=== PATIENT | female | born 1960 | race Caucasian/White ===

== ENCOUNTER 2021-03-23 11:50 | Emergency (ER) | payer OTHER, SELFPAY ==
--- NOTE | ~2021-03-23 | XR_ITS ---
EXAMINATION: XR shoulder LT min 2V DATE: 03/23/2021 12:55 INDICATION: Left shoulder injury and pain. TECHNIQUE: 4 views of left shoulder were obtained. COMPARISON: None. FINDINGS: There is a comminuted fracture of proximal left humerus involving the greater tuberosity an d surgical neck. The main distal fracture fragment demonstrates impaction and 17 degrees lateral angu lation. There is mild osteoarthritis of glenohumeral joint and moderate osteoarthritis of the acromio clavicular joint. IMPRESSION: 1. Comminuted fracture of proximal left humerus. 2. Polyarticular osteoarthritis. Reviewed, dictated and finalized at location A. SDET
[2021-03-23 11:56] VITALS: BP 165/95; PULSE 75; RESP 16; TEMP 36.2; O2SAT 100
--- NOTE | 2021-03-23 11:57 | PC.NURSE ---
2 silver rings removed from 4th finger left hand utilizing soap. rings given to daughter.
--- NOTE | 2021-03-23 12:56 | ED.UPPEXIN ---
HPI - Extremity Injury (Upper) General Chief Complaint: Extremity Injury, Upper Stated Complaint: fall, left arm pain Time Seen by Provider: 03/23/21 12:44 Source: patient Mode of arrival: ambulatory Limitations: no limitations History of Present Illness HPI narrative: Patient is a 11-year-old female complaining of left shoulder pain after she slipped and fell landing on her left shoulder. Patient states that her pain is a 9 out of 10, aching, worse with palpation and movement. Patient denies any head, neck, chest, abdomen, back or any other extremity pain/injury. Patient denies any loss of conscious. Related Data Home Medications Medication Instructions Recorded Confirmed zolpidem 12.5 mg tablet,extended 12.5 mg PO ONCE PRN 01/14/19 05/16/20 release,multiphase Allergies Allergy/AdvReac Type Severity Reaction Status Date / Time No Known Allergies Allergy Verified 03/23/21 12:29 Review of Systems Review of Systems: All systems reviewed & are unremarkable except as noted in HPI and below Constitutional: Constitutional: Denies body ache(s), Denies chills, Denies excessive sweating, Denies fatigue, Denies fever(s), Denies headache(s), Denies lethargy, Denies malaise, Denies weakness and Denies weight loss Eyes: Eyes: Denies blurry vision, Denies change in vision and Denies loss of vision ENT: Denies dizziness, Denies ear discharge, Denies headache(s), Denies lip swelling, Denies epistaxis, Denies nasal congestion, Denies neck pain, Denies throat swelling and Denies tongue swelling Cardiovascular: Cardiovascular: Denies chest pain, Denies chest pain at rest, Denies chest pain with activity, Denies diaphoresis, Denies rapid heart rate, Denies edema, Denies irregular heart rhythm, Denies lightheadedness, Denies palpitations, Denies dyspnea and Denies dyspnea on exertion Respiratory: Respiratory: Denies chest congestion, Denies cough, Denies hemoptysis, Denies dyspnea and Denies dyspnea on exertion Gastrointestinal: Gastrointestinal: Denies abdominal pain, Denies melena, Denies hematochezia, Denies diarrhea, Denies nausea, Denies vomiting and Denies hematemesis Musculoskeletal: Musculoskeletal: Denies abnormal gait, Denies joint swelling, Denies neck pain and Denies numbness Neurologic: Denies Abnormal speech present, Denies abnormal gait, Denies confusion, Denies dizziness, Denies headache(s), Denies focal weakness, Denies loss of vision, Denies numbness, Denies Other visual disturbances, Denies Sensory deficit (Neuro) and Denies weakness Psychiatric: Psychiatric: Denies confusion, Denies depression, Denies auditory hallucinations, Denies homicidal ideation and Denies suicidal ideation Endocrine: Endocrine: Denies cold intolerance, Denies excessive sweating, Denies fatigue, Denies heat intolerance and Denies palpitations Hematologic/Lymphatic: Hematologic/Lymphatic: Denies easy bleeding and Denies easy bruising Allergic/Immunologic: Allergic/Immunologic: Denies lip swelling, Denies throat swelling and Denies tongue swelling PMFSH Past Medical History Medical History Chronic low back pain without sciatica Discoloration of skin of toe Essential hypertension Hyperlipidemia Prediabetes Family History Family History Father Hypertension Alzheimer disease Mother Carcinoma of colon Family history of primary malignant neoplasm of liver Family history of malignant neoplasm of bone Social History Social History Smoking status: Never smoker Alcohol intake: current Exam Const: General: cooperative, healthy appearing, comfortable, no acute distress, well developed, alert and awake; No confusion Orientation/consciousness: oriented to person, oriented to place, oriented to time, patient oriented x3 and No confusion Limitations: no limitati
[2021-03-23] MEDS: diazePAM INJ (*CRX) 10 MG/2 ML SYRINGE 5 MG IM (13:36)
[2021-03-23] MEDS: HYDROcodone/acetaminophen (*CRX) 7.5-325 MG TABLET 1 TAB PO (13:37)
[2021-03-23] MEDS: KETOROLAC 30 MG/ML VIAL (*BKC) IM (13:37)
[2021-03-23 14:25] VITALS: PULSE 82; RESP 16; O2SAT 100
== END 2021-03-23 14:26 | disposition home or self-care (01) ==
PROVIDERS: Emergency Provider Emergency Medicine; PCP Internal Medicine
DX: S42.252A Displaced fracture of greater tuberosity of left humerus, initial encounter for closed fracture (principal); S42.212A Unspecified displaced fracture of surgical neck of left humerus, initial encounter for closed fracture; I10 Essential (primary) hypertension; E78.5 Hyperlipidemia, unspecified; R73.03 Prediabetes; W01.0XXA Fall on same level from slipping, tripping and stumbling without subsequent striking against object, initial encounter
CPT/HCPCS: 73030; 96372; 99284; A9270; J1885; J3360

== ENCOUNTER → 2021-11-19 10:23 | Outpatient (CLI) | payer OTHER, SELFPAY ==
--- NOTE | ~2021-11-19 | MR_ITS ---
EXAMINATION: MR shoulder LT wo con DATE: 11/19/2021 11:03 INDICATION: Left shoulder pain. TECHNIQUE: Magnetic resonance imaging (MRI) of the left shoulder was performed without intravenous co ntrast. Sequences included axial PD-weighted FS FSE, coronal oblique PD-weighted FS FSE and T2-weight ed FS FSE, and sagittal oblique T2-weighted FS FSE and T1-weighted FSE. COMPARISON: Left shoulder radiographs 07/19/2021, 03/23/21 FINDINGS: Coracoacromial arch: The acromion undersurface is flat in morphology (type I). There is severe acromioclavicular joint ost eoarthritis including inferiorly directed osteophytes. There is a physiologic volume of fluid in suba cromial/subdeltoid bursa. Rotator cuff: There is an articular sided partial-thickness tear of the conjoined portion of supraspinatus and infr aspinatus tendons measuring 6 mm anterior to posterior by 26 mm proximal to distal by 50% tendon thic kness. Teres minor tendon is normal. Subscapularis tendon is normal. There is no asymmetric fatty atr ophy of the rotator cuff muscle bellies. Biceps tendon and glenoid labrum: Biceps tendon is in bicipital groove. Intra-articular biceps tendon is normal. There are tears of the glenoid labrum including the posterior superior and anteroinferior labrum. Fluid: There is a small glenohumeral joint effusion. Bones/cartilage: There is a healed fracture deformity of proximal humerus. There is partial-thickness cartilage loss o f glenoid humeral joint. There is a subchondral fracture of posterior superior humeral head with frac ture lines with edema-like marrow signal intensity IMPRESSION: 1. Subchondral fracture involving posterior superior humeral head with fracture lines with edema-like marrow signal intensity. Old healed fracture deformities of proximal humerus. 2. Articular-sided, partial-thickness tear of supraspinatus and infraspinatus tendons. 3. Moderate glenohumeral joint chondrosis. 4. Severe acromioclavicular joint osteoarthritis. Reviewed, dictated and finalized at location A. IMPRESSION: 1. Subchondral fracture involving posterior superior humeral head with fracture lines with edema-like marrow signal intensity. Old healed fracture deformities of proximal humerus. 2. Articular-sided, partial-thickness tear of supraspinatus and infraspinatus t endons. 3. Moderate glenohumeral joint chondrosis. 4. Severe acromioclavicular joint osteoarthritis.
== END ==
PROVIDERS: PCP Internal Medicine; Visit Provider Orthopaedic Surgery
DX: S42.292A Other displaced fracture of upper end of left humerus, initial encounter for closed fracture (principal); M19.012 Primary osteoarthritis, left shoulder; M75.102 Unspecified rotator cuff tear or rupture of left shoulder, not specified as traumatic
CPT/HCPCS: 73221

== ENCOUNTER → 2021-11-19 11:16 | Outpatient (CLI) | payer OTHER, SELFPAY ==
--- NOTE | ~2021-11-19 | MM_ITS ---
EXAMINATION: MM screening cindy BI w yi HISTORY: Screening mammogram TECHNIQUE: Craniocaudal and mediolateral oblique 3-D tomosynthesis images were obtained and synthetic 2-D images were generated. CAD analysis was submitted and interpreted. COMPARISON: 12/25/2017 bilateral screening mammogram BREAST PARENCHYMAL COMPOSITION: There are scattered areas of fibroglandular density. FINDINGS: There is no evidence of suspicious mass, calcification, or architectural distortion to sugg est malignancy in either breast. There has been no suspicious interval change. IMPRESSION: 1. No mammographic evidence of malignancy. 2. Recommend routine screening mammography in one year. BI-RADS Category 1: Negative Reviewed, dictated and finalized at location A.
== END ==
PROVIDERS: PCP Nurse Practitioner; Visit Provider Nurse Practitioner
DX: Z12.31 Encounter for screening mammogram for malignant neoplasm of breast (principal)
CPT/HCPCS: 77063; 77067

== ENCOUNTER 2023-12-15 13:25 | Outpatient (CLI) | payer OTHER, SELFPAY ==
--- NOTE | ~2023-12-15 | MM_ITS ---
EXAMINATION: MM screening cindy BI w yi HISTORY: Screening TECHNIQUE: Craniocaudal and mediolateral oblique 3-D tomosynthesis images were obtained and synthetic 2-D images were generated. CAD analysis was submitted and interpreted. COMPARISON: Comparison to multiple prior studies sequentially, with oldest reviewed study dated 12/14. BREAST PARENCHYMAL COMPOSITION: Not dense: There are scattered areas of fibroglandular density. FINDINGS: The right breast is stable without evidence for malignancy. There is possible subtle jan ectural distortion in the upper outer quadrant. There are no suspicious masses or calcifications in t he left breast. IMPRESSION: 1. Possible developing architectural distortion upper outer quadrant of the left breast, middle third . 2. Additional mammographic views and possible breast ultrasound are recommended. BI-RADS Category 0: Incomplete: Needs additional imaging evaluation. Reviewed, dictated and finalized at location B. IMPRESSION: 1. Possible developing architectural distortion upper outer quadrant of the lef t breast, middle third. 2. Additional mammographic views and possible breast ultrasound are recommended . BI-RADS Category 0: Incomplete: Needs additional imaging evaluation.
== END 2023-12-15 13:26 | disposition home or self-care (01) ==
LOC: MICIMG 13:27
PROVIDERS: PCP Internal Medicine; Visit Provider Nurse Practitioner
DX: Z12.31 Encounter for screening mammogram for malignant neoplasm of breast (principal)
CPT/HCPCS: 77063; 77067

== ENCOUNTER 2024-01-15 08:59 | Outpatient (CLI) | payer OTHER, SELFPAY ==
--- NOTE | ~2024-01-15 | MM_ITS ---
EXAMINATION: MM diagnostic cindy LT w yi HISTORY: Left breast asymmetry TECHNIQUE: Additional 3-D tomosynthesis images of the left breast were performed and synthetic 2-D im ages were generated. CAD analysis was submitted and interpreted. COMPARISON: 12/15/2023, 11/19/2021, 12/25/2017 BREAST PARENCHYMAL COMPOSITION:Not Dense. There are scattered areas of fibroglandular density. FINDINGS: The area of asymmetry effaces with spot compression. No persistent mass lesion or distortio n seen. No suspicious microcalcification. IMPRESSION: No mammographic evidence for malignancy. BI-RADS Category 1: Negative Reviewed, dictated and finalized at location .
== END 2024-01-15 09:00 | disposition home or self-care (01) ==
LOC: MICIMG 09:02
PROVIDERS: PCP Internal Medicine; Visit Provider Nurse Practitioner
DX: N64.89 Other specified disorders of breast (principal)
CPT/HCPCS: 77061; 77065; G0279

== ENCOUNTER 2025-01-11 10:31 | Outpatient (CLI) | payer OTHER, SELFPAY ==
--- NOTE | ~2025-01-11 | XR_ITS ---
XR lumbar spine 2-3V Indication: Low back pain x 1 week, no inj, no surg, twisted it Comparison: None Findings: Mild dextroconvex scoliosis. Grade 1 anterolisthesis of L3 on L4 and L4 on L5, no fracture. Moderate to severe loss of disc at L3-4, L4-5 and L5-S1. Soft tissues unremarkable Impression: No acute abnormality. Reviewed, dictated and finalized at location P. Impression: No acute abnormality.
== END 2025-01-11 10:32 | disposition home or self-care (01) ==
LOC: GOSHIMG 10:32
PROVIDERS: PCP Nurse Practitioner; Visit Provider Nurse Practitioner
DX: M54.50 Low back pain, unspecified (principal)
CPT/HCPCS: 72100

== ENCOUNTER 2025-03-06 12:56 | Outpatient (CLI) | payer OTHER, SELFPAY ==
--- NOTE | ~2025-03-06 | MM_ITS ---
EXAMINATION: MM screening cindy BI w yi HISTORY: Screening. TECHNIQUE: Craniocaudal and mediolateral oblique 3-D tomosynthesis images were obtained and synthetic 2-D images were generated. CAD analysis was submitted and interpreted. COMPARISON: 2023, 2021, and 2017. BREAST PARENCHYMAL COMPOSITION: Not Dense: There are scattered areas of fibroglandular tissue. FINDINGS: No suspicious masses are seen. There are no suspicious calcifications. No unexplained architectural distortion is seen. There are no skin or nipple abnormalities identified. There is no adenopathy seen on the images submitted. IMPRESSION: No mammographic evidence to suggest malignancy is seen. The patient may return to screening mammography as per ACR guidelines. BI-RADS 1 - Negative. Reviewed, dictated and finalized at location A. [employer]
== END 2025-03-06 12:57 | disposition home or self-care (01) ==
LOC: MICIMG 12:56
PROVIDERS: PCP Internal Medicine; Visit Provider Internal Medicine
DX: Z12.31 Encounter for screening mammogram for malignant neoplasm of breast (principal)
CPT/HCPCS: 77063; 77067